=== PATIENT | female | born 1985 | race Caucasian/White ===

== ENCOUNTER 2018-03-09 23:24 | Emergency (ER) | payer BC ==
[~2018-03-09] VITALS: Ht 167.6 cm; Wt 62.7 kg
[~2018-03-09 23:24] MED LIST: AMOXICILLIN 8751 TAB PO
[2018-03-09 23:29] VITALS: BP 106/74
[2018-03-10 01:45] VITALS: PULSE 88
== END 2018-03-10 01:45 | disposition home or self-care (01) ==
LOC: COL.ER 23:24
DX: S61.350A Open bite of right index finger with damage to nail, initial encounter (principal); W55.01XA Bitten by cat, initial encounter; Y92.009 Unspecified place in unspecified non-institutional (private) residence as the place of occurrence of the external cause
CPT/HCPCS: 90375

== ENCOUNTER 2018-03-12 23:16 | Outpatient (RCR) | payer BC ==
[2018-03-16 18:30] VITALS: BP 114/61; PULSE 69; TEMP 98.4
== END 2018-06-10 | disposition home or self-care (01) ==
LOC: COL.ER
DX: Z20.3 Contact with and (suspected) exposure to rabies (principal); Z23 Encounter for immunization

== ENCOUNTER 2020-03-05 12:25 | Emergency (ER) | payer BC ==
[~2020-03-05] VITALS: Ht 170.2 cm; Wt 77.7 kg
[2020-03-05 12:30] VITALS: TEMP 98.2
[2020-03-05] MEDS ORDERED: NATURAL IRON65 MG (12:47)
[2020-03-05] MEDS ORDERED: PRENATAL TABLET PO (12:47)
[2020-03-05] MEDS ORDERED: NEXIUM 20MG20 MG PO (12:48)
[2020-03-05] MEDS ORDERED: MAGNESIUM500 MG PO (12:48)
[2020-03-05 13:53] LABS: BASO % 0.4 % (0.0-2.0); EOS # 0.2 (0.0-0.7); EOS % 2.2 % (0-4.0); GRAN # 7.4 (1.4-6.5); GRAN % 70.7 % (42.2-75.2); HEMOGLOBIN 12.2 g/dl (12.5-16.0); LYMPH # 1.9 (1.2-3.4); LYMPH % 18.3 % (20.0-51.0); MEAN CELL VOLUME 89 fl (80.0-100.0); MEAN CORPUSCULAR HEMOGLOBIN 31 pg (27.0-31.0); MEAN CORPUSCULAR HGB CONC 35 g/dl (33.0-37.0); MEAN PLATELET VOLUME 10.5 fl (7.4-10.4); MONO # 0.8 (0.1-0.6); MONO % 7.3 % (1.7-9.3); PLATELET COUNT 260 K/mm3 (130-400); RED BLOOD COUNT 3.95 M/mm3 (4.10-5.30); REDCELL DISTRIBUTION WIDTH-CV 12.5 % (11.5-14.5)
[2020-03-05 13:59] LABS: PROTHROMBIN TIME 11.2 SECONDS (9.7-12.8)
[2020-03-05 14:01] LABS: ALANINE AMINOTRANSFERASE 18 U/L (4-34); ALBUMIN 3.8 gm/dL (3.5-5.0); ALKALINE PHOSPHATASE 90 U/L (50-136); ANION GAP 8 mmol/L (7-16); AST,SGOT 18 U/L (15-37); BILIRUBIN,TOTAL 0.4 mg/dL (0.0-1.0); BLOOD UREA NITROGEN 8 mg/dL (7-17); CALCIUM 8.7 mg/dL (8.4-10.2); CARBON DIOXIDE 22 mmol/L (22-30); CHLORIDE 104 mmol/L (98-107); CREATININE, serum 0.45 (0.52-1.25); GLUCOSE 112 mg/dL (74-106); LIPASE 77 U/L (23-300); POTASSIUM 3.7 mmol/L (3.4-5.0); SODIUM 133 mmol/L (137-145); TOTAL PROTEIN 6.8 gm/dL (6.4-8.2)
[2020-03-05 14:07] LABS: HEMATOCRIT 35.3 % (37.0-47.0)
[2020-03-05 14:14] LABS: TROPONIN-I < 0.012 ng/mL (0.000-0.035)
[2020-03-05 14:57] VITALS: BP 128/82; PULSE 96
== END 2020-03-05 14:55 | disposition home or self-care (01) ==
LOC: COL.ER 12:25
PROVIDERS: Emergency Medicine
DX: O26.892 Other specified pregnancy related conditions, second trimester (principal); R07.9 Chest pain, unspecified; Z3A.28 28 weeks gestation of pregnancy; Z20.828 Contact with and (suspected) exposure to other viral communicable diseases
CPT/HCPCS: C9113; J2405; J7030

== ENCOUNTER 2020-05-08 20:03 | Outpatient (CLI) | payer BC ==
[~2020-05-08] VITALS: Ht 165.1 cm; Wt 86.8 kg
[~2020-05-08 20:03] MED LIST changes: +MAGNESIUM500 MG PO; +NATURAL IRON65 MG; +NEXIUM 20MG20 MG PO; +PRENATAL TABLET PO
[2020-05-08] MEDS ORDERED: MEGARED ADVANC1 EAC1 PO (20:35)
--- NOTE | 2020-05-08 20:57 | NUR ---
2015- pt. ambulatory to the floor with by her side. orientated to room and changed into clean gown. pt. reports GFM, occasional contractions for weeks, and some spotting from her check this afternoon and some LOF that was pink tinged. Pt is a at [address] Hendrickson. 2019- EFM and TOCO on and tracing. Unable to reach cervix for SVE, amniotrace was negative for amniotic fluid.
--- NOTE | 2020-05-08 21:00 | NUR ---
2049 SVE performed, unable to feel cervix, no fluid noted with exam, small amount of bright red bleeding noted on glove after exam. Reassured patient that this is normal. 2054 Dr. Dixon called and updated on patient. 2099 Patient wearing peripad and will continue to monitor fluid. Plan of care reviewed.
--- NOTE | 2020-05-08 22:05 | NUR ---
2144 No fluid noted on peripad over the last 45 minutes. Patient denies feeling any leaking. Repeat SVE, able to feel cervix but unable to feel presenting part. Cervix is 0-1/50/posterior. Small amount of bleeding noted on gloves after exam. Patient reassured that this is normal. Dr. Dixon called and updated. Orders to discharge patient home with instructions received. 2149 Labor precautions and bleeding precautions reviewed. Discharge instructions reviewed. 2204 Patient discharged home.
== END 2020-05-08 22:05 | disposition home or self-care (01) ==
LOC: LDRO 20:03
DX: O42.92 Full-term premature rupture of membranes, unspecified as to length of time between rupture and onset of labor (principal); Z3A.37 37 weeks gestation of pregnancy

== ENCOUNTER → 2020-07-17 | Outpatient (CLI) | payer BC ==
[~2020-07-17] MED LIST changes: +MEGARED ADVANC1 EAC1 PO; +MOTRIN 800800 MG/TAB PO
--- NOTE | 2020-07-17 13:36 | NUR ---
Pt, Kenny Caal, presents for outpatient consult with 7+ week old baby girl, Yumi Caal, because Yumi has had changes in feeding behaviours. Pt states changes include not nursing the second breast for more than a few minutes, length of feeding time at the breast decreasing (as short as four minutes), increased head bobbing when trying to breastfeed, and head shaking at breast. These changes occur at about 1/3 of Yumi's feedings each day. Yumi was born on [birth year] and weighed 6#15.8oz. Following weights have been: 05/19/20: 6#8.5oz 05/25/20: 6#13.8oz 06/19/20: 8#13.8oz 07/09/20: 10#1.6oz and today: 10#6.2oz which is a reduced rate of gain from 0.99oz per day to 0.575oz per day over the last 8 days. Yumi latches easily, appears latched well, tongue visable across gum line. After nursing the left breast she has a weight gain of 1.8oz and the right a gain of 2.7oz for a total of 4.5oz over 30 min of nursing. Pt states it is abnormal for Yumi to nurse this well on both sides; Yumi did not demonstrate any concerning behaviours during this consult. Pt indicates she does wake Yumi for some feedings in the daytime as she is sleeping better at noc and she wants to ensure Yumi gets enough feedings each day. LC advises to go to more baby lead feedings so that if Yumi is initiating the feeding, she may be more interested and eat larger meals, but not as frequently. also suggests that if Yumi has a poor feeding, she can express after to evaluate volume of left behind milk, helping provide information that may indicate low milk volume as the reason for not nursing long. POC: Pt agress to try baby led feedings for a day or two, and may pump if she has a poor feeding. F/U: Yumi has a two month appointment on 07/20/20 so evaluation of weight with feeding plan changes can be easily evaluated. Pt to contact this LC with weight and feeding information early next week. Follow up consult with be determined at that time. Questions invited and answered.
== END ==
LOC: LAC 12:57
DX: Z39.1 Encounter for care and examination of lactating mother (principal); Z71.89 Other specified counseling

== ENCOUNTER → 2021-09-15 | Outpatient (CLI) | payer BC | LOC: COL.RAD 10:30 | DX: H92.01 Otalgia, right ear (principal) ==